=== PATIENT | male | born 1955 | race Caucasian/White ===

== ENCOUNTER 2017-01-23 15:42 | Inpatient (IN) | payer OTHER ==
[~2017-01-23] VITALS: Ht 198.1 cm; Wt 103.5 kg
[2017-01-23 16:31] LABS: BASOPHILS % (AUTO) 0.9 % (0.0-2.0); EOSINOPHILS % (AUTO) 1.4 % (1.0-6.0); HEMATOCRIT 42.7 % (41-53); HEMOGLOBIN 14.6 g/dL (13.5-17.5); LYMPHOCYTES # (AUTO) 2.1 K/uL (1.0-4.8); LYMPHOCYTES % (AUTO) 30.5 % (22.0-44.0); MEAN CORPUSCULAR HEMOGLOBIN 31.4 pg (26.0-34.0); MEAN CORPUSCULAR HGB CONC 34.2 G/dL (31.0-37.0); MEAN CORPUSCULAR VOLUME 92 fL (80-100); MONOCYTES # (AUTO) 0.6 K/uL (0.1-1.0); NEUTROPHILS # (AUTO) 4.1 K/uL (1.8-7.7); NEUTROPHILS % (AUTO) 58.2 % (40.0-70.0); PLATELET COUNT (AUTO) 235 K/uL (150-450); RED BLOOD CELL COUNT(AUTO) 4.65 MIL/uL (4.50-5.90); RED CELL DISTRIBUTION WIDTH 15.7 % (11.5-14.5)
[2017-01-23 16:50] LABS: ANION GAP 12 mmol/L (8-16); CALCIUM, TOTAL 9.4 mg/dL (8.8-10.5); CARBON DIOXIDE 25 mmol/L (22-29); CHLORIDE 100 mmol/L (98-107); CREATININE 0.86 mg/dL (0.60-1.30); GLOMERULAR FILTR. RATE CALC > 60 mL/min (>60); GLUCOSE,RANDOM 109 mg/dL (70-110); POTASSIUM 3.5 mmol/L (3.5-5.1); SODIUM SERUM 137 mmol/L (136-145); UREA NITROGEN, BLOOD 13 mg/dL (7-18)
[2017-01-23 16:53] LABS: ALANINE AMINOTRANSFERASE 32 U/L (12-78); ALBUMIN 4.1 g/dL (3.4-5.0); ALKALINE PHOSPHATASE 71 U/L (46-116); ASPARTATE AMINOTRANSFERASE 25 U/L (15-37); BILIRUBIN,TOTAL 0.7 mg/dL (0.1-1.0); TOTAL PROTEIN, SERUM 7.7 g/dL (6.4-8.2)
[2017-01-23] MEDS ORDERED: LORazepam 2 MG/ML VIAL IM ONE (18:45)
[2017-01-23] MEDS ORDERED: DiphenhydrAMINE HCL 50 MG/ML VIAL IM ONE (18:45)
[2017-01-23] MEDS ORDERED: HALOPERIDOL LACTATE 5 MG/ML VIAL IM ONE (18:45)
[2017-01-23] MEDS ORDERED: HALOPERIDOL 5 MG TABLET PO PRN (19:15)
[2017-01-23] MEDS ORDERED: ZOLPIDEM TARTRATE 10 MG TABLET PO PRN (19:15)
[2017-01-23] MEDS ORDERED: LORazepam 2 MG TABLET PO PRN (19:15)
[2017-01-23 19:20] LABS: AMPHET/METH SCREEN,URINE NEGATIVE (NEGATIVE); BARBITURATE SCREEN, URINE NEGATIVE (NEGATIVE); BENZODIAZEPINES SCREEN,URINE NEGATIVE (NEGATIVE); CANNABINOID SCREEN,URINE NEGATIVE (NEGATIVE); COCAINE SCREEN,URINE NEGATIVE (NEGATIVE); METHADONE SCREEN, URINE NEGATIVE (NEGATIVE); OPIATE SCREEN,URINE NEGATIVE (NEGATIVE); PHENCYCLIDINE SCREEN,URINE NEGATIVE (NEGATIVE)
[2017-01-23 20:59] LABS: CHOL/HDL RATIO 3.9 (4.2-7.3); FREE T4 (FREE THYROXINE) 1.06 ng/dL (0.76-1.46); THYROID STIMULATING HORMONE 1.95 uIU/mL (0.36-3.74)
[2017-01-23 22:39] VITALS: BP 148/92
[2017-01-24 01:15] VITALS: BP 144/91
[2017-01-24 09:04] VITALS: BP 149/89
[2017-01-24] MEDS ORDERED: CloNIDine HCL 0.1 MG TABLET PO PRN (09:45)
[2017-01-24] MEDS ORDERED: PROPRANOLOL HCL 10 MG TABLET PO PRN (10:00)
[2017-01-24 16:42] VITALS: BP 130/86
[2017-01-24] MEDS: QUEtiapine FUMARATE 100 MG TABLET PO SCH (20:06)
[2017-01-24] MEDS ORDERED: TAMSULOSIN HCL 0.4 MG CAPSULE PO SCH ×2 (21:00)
[2017-01-24] MEDS ORDERED: ATORVASTATIN CALCIUM 10 MG TABLET PO SCH (21:00)
[2017-01-25 01:20] VITALS: BP 131/74
[2017-01-25 08:29] VITALS: BP 127/71
[2017-01-25] MEDS ORDERED: TAMSULOSIN HCL 0.4 MG CAPSULE PO SCH (09:00)
[2017-01-25] MEDS ORDERED: METOPROLOL SUCCINATE 25 MG ER TABLET PO SCH (09:00)
[2017-01-25] MEDS: IBUPROFEN 600 MG TABLET PO PRN ×2 (14:41→20:57)
[2017-01-25 16:07] VITALS: BP 138/82
[2017-01-25] MEDS: LORazepam 1 MG TABLET PO SCH (20:47)
[2017-01-25 20:55] VITALS: BP 142/92
[2017-01-25] MEDS: QUEtiapine FUMARATE 100 MG TABLET PO SCH (20:58)
[2017-01-26 04:44] VITALS: BP 111/90
[2017-01-26] MEDS: TAMSULOSIN HCL 0.4 MG CAPSULE PO SCH (05:00)
[2017-01-26 09:42] VITALS: BP 125/85
[2017-01-26] MEDS: IBUPROFEN 600 MG TABLET PO PRN ×2 (11:57→20:04)
[2017-01-26 16:44] VITALS: BP 129/92
[2017-01-26 20:00] VITALS: BP 130/90
[2017-01-26] MEDS: QUEtiapine FUMARATE 100 MG TABLET PO SCH (20:04)
[2017-01-26] MEDS: LORazepam 1 MG TABLET PO SCH (20:04)
[2017-01-27 00:37] VITALS: BP 118/87
[2017-01-27] MEDS: TAMSULOSIN HCL 0.4 MG CAPSULE PO SCH (06:09)
[2017-01-27] MEDS ORDERED: TAMS-1 PO (07:55)
[2017-01-27] MEDS ORDERED: QUET100T PO (07:55)
[2017-01-27 08:20] VITALS: BP 136/76
== END 2017-01-27 10:30 | disposition left against medical advice (07) | DRG 885 ==
LOC: EMS 15:44 → B2S 19:21
PROVIDERS: ADMIT Psychiatry & Neurology Child & Adolescent Psychiatry; ATTEND Psychiatry & Neurology Child & Adolescent Psychiatry
DX: F31.9 Bipolar disorder, unspecified (principal); E78.5 Hyperlipidemia, unspecified; F29 Unspecified psychosis not due to a substance or known physiological condition; F41.9 Anxiety disorder, unspecified; I10 Essential (primary) hypertension; N40.0 Benign prostatic hyperplasia without lower urinary tract symptoms; G47.00 Insomnia, unspecified; Z79.899 Other long term (current) drug therapy; Z81.8 Family history of other mental and behavioral disorders; Z82.3 Family history of stroke
CPT/HCPCS: 84439; 84443; 96372; 99285; G0480; J1200; J1630; J2060